=== PATIENT | male | born 1930 | race American Indian/Alaskan Native ===

== ENCOUNTER 2018-10-13 14:03 | Emergency (ER) | payer MEDICARE ==
[2018-10-13 14:18] VITALS: BP 154/96
[2018-10-13] MEDS ORDERED: Albuterol/Ipratropium 3.0-0.5 MG/3 ML Neb Soln NEB ONE (14:28)
--- NOTE | 2018-10-13 15:19 | CR ---
Chest: Two views of the chest were obtained. Comparison: Prior chest x-ray of 08/28/13. Heart size is normal. Mild tortuosity of the thoracic aorta is seen. Pacemaker is noted. Lungs are clear with no acute parenchymal change. Degenerative flowing osteophytes are seen within the spine. Impression: 1. Nothing acute is seen on two-view chest x-ray. Diagnostic code #2
--- NOTE | 2018-10-13 15:31 | EDM.PDOC ---
ED HPI GENERAL MEDICAL PROBLEM - General Chief Complaint: Respiratory Problem Stated Complaint: RESPIRATORY ISSUES Time Seen by Provider: 10/13/18 14:15 Source of Information: Reports: Patient, Family History Limitations: Reports: No Limitations - History of Present Illness INITIAL COMMENTS - FREE TEXT/NARRATIVE: The patient presents with his family for shortness of breath and cough. He also has not felt well for a few days. His was sick with the same thing and was put on some antibiotics and she is better. He does not smoke and he has no history of asthma or emphysema. He has no chest pain. He is short of breath. He has no abdominal pain, nausea or vomiting. Onset: Gradual Duration: Day(s): Severity: Moderate Improves with: Reports: None Worsens with: Reports: None Associated Symptoms: Reports: Cough, cough w sputum, Shortness of Breath. Denies: Chest Pain, Fever/Chills, Headaches, Nausea/Vomiting - Related Data Allergies Allergy/AdvReac Type Severity Reaction Status Date / Time No Known Allergies Allergy Verified 10/13/18 14:14 Home Meds: Home Meds Aspirin [Kaye Chewable Aspirin] 81 mg PO DAILY 01/14/14 [History] Clopidogrel [Plavix] 75 mg PO DAILY 01/14/14 [History] Losartan [Cozaar] 50 mg PO BID 01/14/14 [History] Magnesium Oxide [Mag-Oxide] 400 mg PO BID 01/14/14 [History] Sotalol [Betapace] 40 mg BID 01/14/14 [History] Terazosin [Hytrin] 5 mg PO DAILY 01/14/14 [History] amLODIPine [Norvasc] 5 mg PO BID 01/14/14 [History] cloNIDine [cloNIDine HCl] 0.05 mg PO PRN 01/14/14 [History] Albuterol [Proventil HFA] 2 puff INH Q4H PRN #1 inhaler 10/13/18 [Rx] Azithromycin [Zithromax] 250 mg PO DAILY #6 tab 10/13/18 [Rx] Codeine/Promethazine [Phenergan with Codeine] 5 ml PO Q6HR PRN #300 ml 10/13/18 [Rx] Metoprolol Succinate 50 mg PO DAILY 10/13/18 [History] Vitamin B Complex [B Complex] 1 tab PO DAILY 10/13/18 [History] Past Medical History HEENT History: Reports: Hard of Hearing Cardiovascular History: Reports: Hypertension, Pacemaker Social & Family History - Family History Family Medical History: Noncontributory - Tobacco Use Smoking Status *Q: Never Smoker ED ROS GENERAL - Review of Systems Review Of Systems: See Below Constitutional: Reports: Weakness, Fatigue. Denies: Fever, Chills HEENT: Reports: No Symptoms Respiratory: Reports: Shortness of Breath, Cough Cardiovascular: Reports: No Symptoms Endocrine: Reports: No Symptoms GI/Abdominal: Reports: No Symptoms : Reports: No Symptoms Musculoskeletal: Reports: No Symptoms ED EXAM, GENERAL - Physical Exam Exam: See Below Exam Limited By: No Limitations General Appearance: Alert, No Apparent Distress Ears: Normal External Exam Nose: Normal Inspection Head: Atraumatic, Normocephalic Neck: Normal Inspection Respiratory/Chest: No Respiratory Distress, Rhonchi Cardiovascular: Regular Rate, Rhythm, No Edema, No Murmur GI/Abdominal: Soft, Non-Tender, No Organomegaly, No Mass Back Exam: Normal Inspection Extremities: Normal Inspection Course - Vital Signs Last Recorded V/S: Last Vital Signs Temp 96.0 F 10/13/18 14:15 Pulse 80 10/13/18 14:15 Resp 18 10/13/18 14:15 BP 154/96 H 10/13/18 14:15 Pulse Ox 99 10/13/18 14:54 - Orders/Labs/Meds Orders: Active Orders 24 hr Category Date Time Status Cardiac Monitoring [RC] . DIRECTED Care 10/13/18 14:29 Active RT Aerosol Therapy [RC] ASDIRECTED Care 10/13/18 14:28 Active CULTURE SPUTUM + SMEAR [RM] Stat Lab 10/13/18 15:00 Received Labs: Laboratory Tests 10/13/18 10/13/18 Range/Units 15:00 15:00 WBC 9.05 (4.23-9.07) K/mm3 RBC 3.25 L (4.63-6.08) M/mm3 Hgb 10.4 L (13.7-17.5) gm/L Hct 30.8 L (40.1-51.0) % MCV 94.8 H (79.0-92.2) fl MCH 32.0 (25.7-32.2) pg MCHC 33.8 (32.2-35.5) g/dl RDW Std Deviation 43.1 (35.1-43.9) fL Plt Count 253 (163-337) K/mm3 MPV 8.9 L (9.4-12.3) fl Neut % (Auto) 70.9 H (34.0-67.9) % Lymph % (Auto) 9.7 L (21.8-53.1) % Cassia % (Auto) 16.9 H (5.3-12.2) % Eos % (Auto) 2.2 (0.8-7.0) Baso % (Auto) 0.2 (0.1-1.2) % Neut # (Auto) 6.41 H (1.78-5.38) K/mm3 Lymph # (Auto) 0.88 L (1.32-3.57) K/mm3 Cassia # (Auto) 1.53 H (0.30-0.82) K/mm3 Eos # (Auto) 0.20 (0.04-0.54) K/mm3 Baso # (Auto) 0.02 (0.01-0.08) K/mm3 Manual Slide Review Abnormal smear Sodium 131 L (136-145) mEq/L Potassium 4.1 (3.5-5.1) mEq/L Chloride 98 (98-107) mEq/L Carbon Dioxide 25 (21-32) mEq/L Anion Gap 12.1 (5-15) BUN 18 (7-18) mg/dL Creatinine 1.1 (0.7-1.3) mg/dL Est Cr Clr Drug Dosing 48.20 mL/min Estimated GFR (MDRD) > 60 (>60) mL/min BUN/Creatinine Ratio 16.4 (14-18) Glucose 112 (83-115) mg/dL Calcium 8.5 (8.5-10.1) mg/dL Total Bilirubin 0.6 (0.2-1.0) mg/dL AST 42 H (15-37) U/L ALT 52 (16-63) U/L Alkaline Phosphatase 62 (46-116) U/L Total Protein 7.0 (6.4-8.2) g/dl Albumin 3.3 L (3.4-5.0) g/dl Globulin 3.7 gm/dL Albumin/Globulin Ratio 0.9 L (1-2) Meds: Medications Discontinued Medications Generic Name Dose Route Start Last Admin Trade Name Freq PRN Reason Stop Dose Admin Albuterol/Ipratropium 3 ml 10/13/18 14:28 10/13/18 14:53 Duoneb 3.0-0.5 Mg/3 Ml NEB 10/13/18 14:29 Not Given ONETIME ONE - Re-Assessments/Exams Free Text/Narrative Re-Assessment/Exam: 10/13/18 15:31 I ordered a duoneb, CXR and labs. His CXR looks good. There is no pneumonia. His labs look good. I will get him on some zithromax, albuterol and phenergan with codeine for the cough. Departure - Departure Time of Disposition: 15:50 Disposition: Home, Self-Care 01 Condition: Good Clinical Impression: Bronchitis - Discharge Information *PRESCRIPTION DRUG MONITORING PROGRAM REVIEWED*: No *COPY OF PRESCRIPTION DRUG MONITORING REPORT IN PATIENT APOLONIA: No Prescriptions: Codeine/Promethazine [Phenergan with Codeine] 5 ml PO Q6HR PRN #300 ml PRN Reason: Cough Albuterol [Proventil HFA] 2 puff INH Q4H PRN #1 inhaler PRN Reason: Shortness Of Breath Azithromycin [Zithromax] 250 mg PO DAILY #6 tab Referrals: PCP,None [Primary Care Provider] - Forms: ED Department Discharge Additional Instructions: Take the zithromax 2 pills on day 1 and 1 pill on day 2 through 5. Use the inhaler 2 puffs every 6 hours as needed for shortness of breath. Take the phenergan with codeine 5mls every 6 hours as needed for cough. Please return if you are worse. - My Orders Last 24 Hours: My Active Orders 10/13/18 14:28 RT Aerosol Therapy [RC] ASDIRECTED 10/13/18 14:29 Cardiac Monitoring [RC] . DIRECTED 10/13/18 15:00 CULTURE SPUTUM + SMEAR [RM] Stat - Assessment/Plan Last 24 Hours: My Active Orders 10/13/18 14:28 RT Aerosol Therapy [RC] ASDIRECTED 10/13/18 14:29 Cardiac Monitoring [RC] . DIRECTED 10/13/18 15:00 CULTURE SPUTUM + SMEAR [RM] Stat
== END 2018-10-13 16:00 | disposition home or self-care (01) ==
LOC: JD.ED 14:03
DX: J40 Bronchitis, not specified as acute or chronic (principal); I10 Essential (primary) hypertension; Z79.82 Long term (current) use of aspirin; Z79.899 Other long term (current) drug therapy
CPT/HCPCS: 36415; 71046; 71046-26; 80053; 85025; 87070; 87077; 87184; 87205; 94640; 99284-25